=== PATIENT | male | born 1945 | race Caucasian/White ===

== ENCOUNTER 2017-08-28 14:29 | Inpatient (IN) | payer MEDICARE ==
[~2017-08-28] VITALS: Ht 152.4 cm; Wt 86.9 kg
[2017-08-28 15:24] LABS: HEMATOCRIT 38.1 % (39.0-50.0); HEMOGLOBIN 13.1 g/dl (14.0-18.0); IMMATURE GRANULOCYTES 0.4 % (0.0-1.0); MEAN CELL VOLUME 92.3 fL CALC (80.0-100.0); MEAN CORPUSCULAR HGB 31.7 pG CALC (26.0-32.0); MEAN CORPUSCULAR HGB CONC 34.4 g/L CALC (32.0-36.0); NEUT# 2.18 thou/uL (1.82-7.42); RED BLOOD COUNT 4.13 mill/uL (4.70-6.10); RED CELL DISTRI WIDTH 13.4 % (11.5-15.5)
[2017-08-28 15:44] LABS: INFLUENZA A NONE DETECTED (NONE DETECT); INFLUENZA B NONE DETECTED (NONE DETECT)
[2017-08-28 15:48] LABS: ALBUMIN 4.4 g/dL (3.2-5.0); ALKALINE PHOSPHATASE 86 u/l (38-126); ANION GAP 18 (6-22 (CALC)); BILIRUBIN, TOTAL 1.5 mg/dL (0.0-1.4); BUN 23 mg/dL (8-23); BUN/CREATININE RATIO 19 (12-20 (CALC)); CARBON DIOXIDE 25 mmol/l (22-30); CHLORIDE 103 mmol/l (95-108); CREATININE 1.2 mg/dL (0.7-1.3); GFR 59 ML/MIN (>=60 (CALC)); GFR FOR AFR.AMER. > 60 ML/MIN (>=60 (CALC)); POTASSIUM 3.3 mmol/l (3.5-5.1); SGOT/AST 49 u/l (19-48); SGPT/ALT 20 u/l (11-66); SODIUM 143 mmol/l (137-146)
[2017-08-28 18:04] LABS: URINE BILIRUBIN - DIPSTICK NEGATIVE (NEGATIVE); URINE BLOOD DIPSTICK NEGATIVE (NEGATIVE); URINE COLOR YELLOW; URINE GLUCOSE - DIPSTICK NEGATIVE (NEGATIVE); URINE KETONE NEGATIVE (NEGATIVE); URINE PROTEIN - DIPSTICK NEGATIVE (NEG-TRACE); URINE UROBILINOGEN - DIPSTICK 0.2 E.U./dL (0.2)
[2017-08-28 18:55] VITALS: BP 127/54
[2017-08-28 19:04] LABS: URINE CLARITY CLEAR; URINE LEUK ESTERASE SMALL (NEGATIVE); URINE NITRITE - DIPSTICK POSITIVE (Negative)
[2017-08-28 19:20] LABS: URINE BACTERIA MANY hpf; URINE SQUAMOUS EPITHELIAL CELL FEW EPI/hpf (0-FEW)
[2017-08-29 00:45] VITALS: BP 114/61
[2017-08-29 04:55] VITALS: BP 112/58
[2017-08-29 05:34] LABS: HEMATOCRIT 31.1 % (39.0-50.0); HEMOGLOBIN 10.8 g/dl (14.0-18.0); IMMATURE GRANULOCYTES 0.6 % (0.0-1.0); MEAN CELL VOLUME 93.1 fL CALC (80.0-100.0); MEAN CORPUSCULAR HGB 32.3 pG CALC (26.0-32.0); MEAN CORPUSCULAR HGB CONC 34.7 g/L CALC (32.0-36.0); PLATELET COUNT 129 thou/uL (130-400); RED BLOOD COUNT 3.34 mill/uL (4.70-6.10); RED CELL DISTRI WIDTH 13.4 % (11.5-15.5)
[2017-08-29 06:09] LABS: BAND 4 % (0-8); MANUAL DIFFERENTIAL YES
[2017-08-29 06:11] LABS: ANION GAP 14 (6-22 (CALC)); BUN 27 mg/dL (8-23); BUN/CREATININE RATIO 20 (12-20 (CALC)); CALCULATED LDLCHOLESTEROL 36 mg/dL (62-129 (CALC)); CARBON DIOXIDE 23 mmol/l (22-30); CHLORIDE 108 mmol/l (95-108); CREATININE 1.3 mg/dL (0.7-1.3); GFR 54 ML/MIN (>=60 (CALC)); GFR FOR AFR.AMER. > 60 ML/MIN (>=60 (CALC)); HDL CHOLESTEROL 25 mg/dL (>=40); MAGNESIUM 1.3 mg/dL (1.6-2.3); POTASSIUM 3.7 mmol/l (3.5-5.1); SODIUM 141 mmol/l (137-146); TOTAL CHOLESTEROL 102 mg/dl (0-199); TOTAL TRIGLYCERIDES 207 mg/dl (30-149); VLDL CHOLESTROL 41 mg/dl (0-38 (CALC))
[2017-08-29 07:42] VITALS: BP 129/53
[2017-08-29] MEDS ORDERED: METFORMIN500 M2 PO (14:22)
[2017-08-29] MEDS ORDERED: HYD (14:23)
[2017-08-29] MEDS ORDERED: RANITIDINE150 M1 PO (14:23)
[2017-08-29] MEDS ORDERED: TELMISARTAN (14:23)
[2017-08-29] MEDS ORDERED: MELOXICAM15 MG PO (14:24)
[2017-08-29] MEDS ORDERED: PROCARDIA XL90 MG PO (14:25)
[2017-08-29] MEDS ORDERED: METOPROLOL SUC100 MG PO (14:25)
[2017-08-29] MEDS ORDERED: APRESOLINE50 MG PO (14:25)
[2017-08-29] MEDS ORDERED: FENOFIBRATE160 MG PO (14:26)
[2017-08-29] MEDS ORDERED: OMEPRAZOLE20 M2 PO (14:26)
[2017-08-29] MEDS ORDERED: SERTRALINE100 MG PO (14:26)
[2017-08-29] MEDS ORDERED: DILANTIN100 MG PO ×2 (14:32→14:33)
[2017-08-29 16:15] VITALS: BP 159/74
[2017-08-29 19:00] VITALS: BP 170/66
[2017-08-30] VITALS (17 sets, daily range): BP systolic 150–220; BP diastolic 70–106
[2017-08-30 05:39] LABS: HEMATOCRIT 29.1 % (39.0-50.0); HEMOGLOBIN 10.2 g/dl (14.0-18.0); MEAN CELL VOLUME 91.8 fL CALC (80.0-100.0); MEAN CORPUSCULAR HGB 32.2 pG CALC (26.0-32.0); MEAN CORPUSCULAR HGB CONC 35.1 g/L CALC (32.0-36.0); RED BLOOD COUNT 3.17 mill/uL (4.70-6.10); RED CELL DISTRI WIDTH 13.4 % (11.5-15.5)
[2017-08-30 06:01] LABS: ANION GAP 13 (6-22 (CALC)); BUN 22 mg/dL (8-23); BUN/CREATININE RATIO 22 (12-20 (CALC)); CARBON DIOXIDE 22 mmol/l (22-30); CHLORIDE 111 mmol/l (95-108); GFR > 60 ML/MIN (>=60 (CALC)); GFR FOR AFR.AMER. > 60 ML/MIN (>=60 (CALC)); POTASSIUM 3.5 mmol/l (3.5-5.1); SODIUM 143 mmol/l (137-146)
[2017-08-31] VITALS (14 sets, daily range): BP systolic 140–198; BP diastolic 60–93
[2017-08-31 06:25] LABS: HEMATOCRIT 30.6 % (39.0-50.0); HEMOGLOBIN 10.4 g/dl (14.0-18.0); IMMATURE GRANULOCYTES 0.7 % (0.0-1.0); MEAN CELL VOLUME 92.4 fL CALC (80.0-100.0); MEAN CORPUSCULAR HGB 31.4 pG CALC (26.0-32.0); NEUT# 4.26 thou/uL (1.82-7.42); RED BLOOD COUNT 3.31 mill/uL (4.70-6.10); RED CELL DISTRI WIDTH 13.6 % (11.5-15.5)
[2017-08-31 06:36] LABS: ANION GAP 14 (6-22 (CALC)); BUN 16 mg/dL (8-23); BUN/CREATININE RATIO 18 (12-20 (CALC)); CARBON DIOXIDE 25 mmol/l (22-30); CHLORIDE 107 mmol/l (95-108); CREATININE 0.9 mg/dL (0.7-1.3); GFR > 60 ML/MIN (>=60 (CALC)); GFR FOR AFR.AMER. > 60 ML/MIN (>=60 (CALC)); POTASSIUM 3.7 mmol/l (3.5-5.1); SODIUM 143 mmol/l (137-146)
[2017-08-31] MEDS ORDERED: GNP KRILL OIL O1 CAP PO (10:09)
[2017-08-31] MEDS ORDERED: D32000 UNIT PO (10:09)
[2017-08-31] MEDS ORDERED: MEVACOR40 MG PO (10:10)
[2017-09-01] VITALS (16 sets, daily range): BP systolic 124–1190; BP diastolic 57–87
[2017-09-01 05:27] LABS: HEMATOCRIT 29.4 % (39.0-50.0); HEMOGLOBIN 10.2 g/dl (14.0-18.0); MEAN CORPUSCULAR HGB 32.3 pG CALC (26.0-32.0); MEAN CORPUSCULAR HGB CONC 34.7 g/L CALC (32.0-36.0); NEUT# 4.22 thou/uL (1.82-7.42); RED BLOOD COUNT 3.16 mill/uL (4.70-6.10); RED CELL DISTRI WIDTH 13.6 % (11.5-15.5)
[2017-09-01 05:42] LABS: ANION GAP 13 (6-22 (CALC)); BUN 14 mg/dL (8-23); BUN/CREATININE RATIO 17 (12-20 (CALC)); CARBON DIOXIDE 25 mmol/l (22-30); CHLORIDE 109 mmol/l (95-108); CREATININE 0.8 mg/dL (0.7-1.3); GFR > 60 ML/MIN (>=60 (CALC)); GFR FOR AFR.AMER. > 60 ML/MIN (>=60 (CALC)); POTASSIUM 3.9 mmol/l (3.5-5.1); SODIUM 144 mmol/l (137-146)
[2017-09-02] VITALS (9 sets, daily range): BP systolic 152–199; BP diastolic 60–85
[2017-09-02] MEDS ORDERED: ASPIRIN 8181 MG PO (09:17)
[2017-09-02] MEDS ORDERED: PREDNISONE10 MG PO (09:19)
[2017-09-02] MEDS ORDERED: LEVAQUIN750 MG PO (09:19)
== END 2017-09-02 12:00 | disposition home or self-care (01) | DRG 871 ==
LOC: ED 14:29 → ED-I 17:35 → ED 18:06 → MS2 18:07 → ICU 08-30 22:16
PROVIDERS: Emergency Medicine; Nurse Practitioner Family; ADMIT Internal Medicine; ATTEND Internal Medicine
PROC: 0T9B70Z Drainage of Bladder with Drainage Device, Via Natural or Artificial Opening (ICD-10-PCS; principal; 2017-08-28)
DX: A41.9 Sepsis, unspecified organism (principal); J18.9 Pneumonia, unspecified organism; I69.951 Hemiplegia and hemiparesis following unspecified cerebrovascular disease affecting right dominant side; G40.909 Epilepsy, unspecified, not intractable, without status epilepticus; J44.0 Chronic obstructive pulmonary disease with (acute) lower respiratory infection; I16.0 Hypertensive urgency; I10 Essential (primary) hypertension; I25.10 Atherosclerotic heart disease of native coronary artery without angina pectoris; I73.9 Peripheral vascular disease, unspecified; E83.42 Hypomagnesemia; Z87.891 Personal history of nicotine dependence; Z95.820 Peripheral vascular angioplasty status with implants and grafts; Z95.5 Presence of coronary angioplasty implant and graft
CPT/HCPCS: J3370; J3475